=== PATIENT | male | born 1995 | race Caucasian/White ===

== ENCOUNTER → 2019-10-27 | Outpatient (CLI) | payer OTHER ==
[~2019-10-27] MED LIST: METHACHOLINE KIT (J7674) INH ONE
--- NOTE | 2019-10-27 14:44 | PFTRPT ---
Site: [facility], [address] [place], [address] ID: [id number] Name: FORREST NAIR Visit Date: 10/27/2019 Second ID: [id number] Referring Doctor: Apoorva Carlson Reviewing Doctor: Alon Castro MD Gold Buyer: Miguel DE SOUZA RRT Age: 24 : 1995 Sex: Male Race: Height: 69.00 Inches Weight: 187.00 Lbs BSA: 2.01 Order IDs: [id number] Requested Test(s): <RESP-PFT.METH CHAL> Diagnosis: R05 of albuterol for postbronchodilator. Review Status: Not Reviewed Pre-Bronch Post-Bronch Pred Actual %Pred Actual %Chng SPIROMETRY FVC (L) 5.41 5.40 99 5.37 FEV1 (L) 4.50 4.18 92 4.16 FEV1/FVC (%) 83 77 93 77 FEF 25% (L/sec) 8.46 7.09 83 7.78 9 FEF 50% (L/sec) 5.93 4.35 73 4.31 FEF 75% (L/sec) 2.30 1.75 76 1.58 -9 FEF 25-75% (L/sec) 4.74 3.71 78 3.60 -2 FEF Max (L/sec) 9.93 7.11 71 8.07 13 FIVC (L) 5.35 4.05 -24 FIF 50% (L/sec) 5.69 5.75 101 5.55 -3 FIF Max (L/sec) 6.10 6.35 4 Expiratory Time (sec) 6.52 7.74 18 Back Extrap Vol (L) 0.21 0.20 -5 Time To FEFmax (sec) 0.175 0.126 -28
== END ==
LOC: M CARPUL 13:38
PROVIDERS: ATTEND Nurse Practitioner Adult Health
DX: R05 Cough (principal)
CPT/HCPCS: 94070; J7674